=== PATIENT | male | born 1965 | race Caucasian/White ===

== ENCOUNTER 2018-12-07 13:40 | Outpatient (CLI) | payer BC ==
--- NOTE | 2018-12-07 16:10 | RAD ---
TWO VIEWS OF THE CHEST: 12/07/18 COMPARISON: 07/20/04 HISTORY: Cough. FINDINGS: Two views of the chest show normal sized cardiomediastinal silhouette. There is no evidence of consol idation, mass, or pleural effusion. The bones are unremarkable. IMPRESSION: No evidence of acute cardiopulmonary disease. POS: [facility]
== END 2018-12-07 13:41 | disposition home or self-care (01) ==
LOC: BICRAD 13:40
PROVIDERS: ATTEND Family Medicine
DX: R05 Cough (principal)
CPT/HCPCS: 71046

== ENCOUNTER 2019-12-10 14:14 | Outpatient (CLI) | payer BC ==
--- NOTE | 2019-12-10 17:38 | MRI ---
LEFT SHOULDER MRI WITHOUT IV CONTRAST: HISTORY: Tear of left rotator cuff, left shoulder pain with limited range of motion. FINDINGS: Multiplanar, multisequence MRI examination of the left shoulder is performed. There are AC joint art hrosis changes. Mild downsloping of the lateral acromion with some minimal fat stranding in the suba cromial subdeltoid bursa. Tiny undersurface focus of increased signal involving the supraspinatus an d infraspinatus tendon insertion regions, evidence for tiny undersurface or possibly interstitial tea rs without evidence for a complete full-thickness retracted tear. Undersurface and minimally delamin ating subscapularis tendon tear and mild tendinopathy. Abnormal linear signal associated with the conner perior labrum extending posteriorly, evidence for a SLAP tear with posterior extension. No evidence for abnormal edema or acute osteochondral defect. Rotator cuff muscles are within normal limits of s ignal and volume. IMPRESSION: Evidence for superior labrum anterior to posterior tear. Acromioclavicular joint arthrosis. Very sm all undersurface and minimal interstitial tearing of the supraspinatus, infraspinatus, and subscapula ris tendons without complete full-thickness or retracted tear. POS: [facility]
== END 2019-12-10 14:15 | disposition home or self-care (01) ==
LOC: TBSIIMAG 14:14
PROVIDERS: ATTEND Orthopaedic Surgery
DX: M75.102 Unspecified rotator cuff tear or rupture of left shoulder, not specified as traumatic (principal); M19.012 Primary osteoarthritis, left shoulder; S43.432A Superior glenoid labrum lesion of left shoulder, initial encounter

== ENCOUNTER 2020-03-03 19:00 | Outpatient (CLI) | payer BC | END 2020-03-03 19:01 | disposition home or self-care (01) | LOC: SLEEPLAB 19:00 | PROVIDERS: ATTEND Physician Assistant | DX: G47.33 Obstructive sleep apnea (adult) (pediatric) (principal); R53.83 Other fatigue; G47.00 Insomnia, unspecified | CPT/HCPCS: 95810 ==

== ENCOUNTER 2021-08-21 08:12 | Outpatient (CLI) | payer BC | END 2021-08-21 08:13 | disposition home or self-care (01) | LOC: BICULT 08:12 | PROVIDERS: ATTEND Family Medicine | DX: R79.89 Other specified abnormal findings of blood chemistry (principal); Z82.49 Family history of ischemic heart disease and other diseases of the circulatory system | CPT/HCPCS: 76775 ==

== ENCOUNTER 2022-06-07 08:33 | Outpatient (CLI) | payer OTHER | END 2022-06-07 08:34 | disposition home or self-care (01) | LOC: TBSIIMAG 08:33 | PROVIDERS: ATTEND Nurse Practitioner Family | DX: R42 Dizziness and giddiness (principal); I49.9 Cardiac arrhythmia, unspecified; T67.1XXS Heat syncope, sequela; R90.89 Other abnormal findings on diagnostic imaging of central nervous system; Z87.820 Personal history of traumatic brain injury | CPT/HCPCS: 70551 ==

== ENCOUNTER 2023-02-14 15:41 | Outpatient (CLI) | payer OTHER | END 2023-02-14 15:42 | disposition home or self-care (01) | LOC: BICMRI 15:41 | PROVIDERS: ATTEND Orthopaedic Surgery | DX: M75.102 Unspecified rotator cuff tear or rupture of left shoulder, not specified as traumatic (principal); S43.432A Superior glenoid labrum lesion of left shoulder, initial encounter; M75.122 Complete rotator cuff tear or rupture of left shoulder, not specified as traumatic; S46.912A Strain of unspecified muscle, fascia and tendon at shoulder and upper arm level, left arm, initial encounter ==

== ENCOUNTER 2023-03-15 15:14 | Outpatient (CLI) | payer OTHER ==
[2023-03-15 16:16] LABS: #Eosinphils 0.2 10x3/uL (0.0-0.5); #Monocytes 0.5 10x3/uL (0.0-1.1); #Neutrophils 3.9 10x3/uL (1.5-8.4); %Basophils 0.5 % (0.0-2.0); %Eosinophils 2.4 % (0.0-6.0); %Lymphocytes 28.1 % (18.0-47.0); %Monocytes 7.1 % (0.0-10.0); Hematocrit 40.4 % (38.8-50.0); Hemoglobin 14.8 g/dL (13.5-17.5); Mean Corpuscular HGB CONC 36.6 g/dL (32.0-36.0); Mean Corpuscular Hemoglobin 31.5 pg (27.0-33.0); Mean Platelet Volume 10.6 fl (7.4-10.4); Platelet Count 266 10x3/uL (150-450); RBC Distribution Width 13.2 % (11.5-14.5); White Blood Cell (WBC) Count 6.4 10x3/uL (3.5-10.5)
[2023-03-15 16:49] LABS: Anion Gap 14 mmol/L (10-20); BUN (Urea Nitrogen) 16 mg/dL (8.4-25.7); Calc. Creatinine Clearance 0 mL/min (70-130); Calcium 9.2 mg/dL (7.8-10.44); Carbon Dioxide 22 mmol/L (22-29); Chloride 106 mmol/L (98-107); Estimated GFR 75; Glucose 115 mg/dL (70-105); Sodium 138 mmol/L (136-145)
== END 2023-03-15 15:15 | disposition home or self-care (01) ==
LOC: LABBT 15:14
PROVIDERS: ATTEND Orthopaedic Surgery
DX: Z01.818 Encounter for other preprocedural examination (principal); M75.112 Incomplete rotator cuff tear or rupture of left shoulder, not specified as traumatic; M67.812 Other specified disorders of synovium, left shoulder
CPT/HCPCS: 80048; 85025; 93005; 93010

== ENCOUNTER 2023-03-17 07:29 | Day surgery (SDC) | payer OTHER ==
[2023-03-15 15:38] VITALS: BMI 27.9
[2023-03-17] MEDS ORDERED: fentaNYL 50 mcg/mL 1 mL Vial ONE (07:56)
[2023-03-17] MEDS ORDERED: Midazolam HCl 2 mg/2 ml Vial ONE (07:56)
[2023-03-17] MEDS ORDERED: Bupivacaine PF 0.5% 30 ML VIAL ONE (07:56)
[2023-03-17] MEDS ORDERED: CEFAZOLIN 2 GM VIAL ONE (08:02)
[2023-03-17] MEDS ORDERED: Sodium Chloride 0.9% 100 ML ONE (08:02)
[2023-03-17] MEDS ORDERED: HYDROmorphone 0.5 MG/0.5 ML SYRINGE ONE (08:13)
[2023-03-17] MEDS ORDERED: fentaNYL PF 100 MCG/2 ML SYRINGE ONE (08:13)
[2023-03-17] MEDS ORDERED: PHENYLEPHRINE-NS 100 MCG/ML 10 ML SYRINGE ONE (08:13)
[2023-03-17] MEDS ORDERED: Phenylephrine 10 MG/ML VIAL ONE (08:14)
[2023-03-17] MEDS ORDERED: Lidocaine 1% (PF) 30 ML VIAL ONE (08:29)
[2023-03-17] MEDS ORDERED: EPINEPHrine 1 MG/ML AMP ONE (08:29)
[2023-03-17] MEDS ORDERED: Dexamethasone 20 MG/5 ML VIAL ONE (08:52)
[2023-03-17] MEDS ORDERED: Ondansetron PF 4 MG/2 ML Vial ONE (08:52)
[2023-03-17] MEDS ORDERED: Rocuronium Bromide 10 MG/ML (10ML VIAL) ONE (08:52)
[2023-03-17] MEDS ORDERED: Lidocaine 1% PF 5 ML VIAL ONE (08:52)
[2023-03-17] MEDS ORDERED: PROPOFOL 200 MG/20 ML VIAL ONE (08:52)
[2023-03-17] MEDS ORDERED: fentaNYL 50 mcg/mL 1 mL Vial SLOW IVP PRN (08:55)
[2023-03-17] MEDS ORDERED: traMADol HCl 50 MG TAB PO PRN ×2 (09:00)
[2023-03-17] MEDS ORDERED: Ropivacaine 0.2% 550 ML 550 ML NERVE BLCK SCH (09:00)
[2023-03-17] MEDS ORDERED: HYDROcodone/Acetaminophen 10/325 mg Tablet PO PRN ×2 (09:00)
[2023-03-17] MEDS ORDERED: Zolpidem Tartrate 5 MG TAB PO PRN (09:00)
[2023-03-17] MEDS ORDERED: Ondansetron PF 4 MG/2 ML Vial IVP PRN (09:00)
[2023-03-17] MEDS ORDERED: Promethazine HCl 25 MG/ML VIAL IM PRN (09:00)
[2023-03-17] MEDS ORDERED: Ketorolac Tromethamine 30 MG/ML VIAL IVP SCH (12:00)
== END 2023-03-17 13:40 | disposition home or self-care (01) ==
LOC: SDC 07:29
PROVIDERS: ATTEND Orthopaedic Surgery
PROC: 0LS44ZZ Reposition Left Upper Arm Tendon, Percutaneous Endoscopic Approach (ICD-10-PCS; principal; 2023-03-17)
PROC: 0RNK4ZZ Release Left Shoulder Joint, Percutaneous Endoscopic Approach (ICD-10-PCS; principal; 2023-03-17)
DX: S43.432A Superior glenoid labrum lesion of left shoulder, initial encounter (principal); S46.202A Unspecified injury of muscle, fascia and tendon of other parts of biceps, left arm, initial encounter; S46.012A Strain of muscle(s) and tendon(s) of the rotator cuff of left shoulder, initial encounter; X58.XXXA Exposure to other specified factors, initial encounter; Z96.652 Presence of left artificial knee joint
CPT/HCPCS: A4306; C1713; J0171; J1100; J1170; J2001; J2250; J2370; J2405; J2704; J2795; J3010; J3490; S0020

== ENCOUNTER 2023-08-21 15:39 | Emergency (ER) | payer OTHER ==
[2023-08-21 17:32] LABS: #Eosinphils 0.1 thou/uL (0.0-0.7); #Monocytes 0.6 thou/uL (0.11-0.59); %Basophils 0.4 % (0.0-1.0); %Eosinophils 1.6 % (0.0-10.0); %Lymphocytes 19.6 % (21.0-51.0); %Monocytes 7.5 % (0.0-10.0); %Neutrophils 70.3 % (42.0-75.0); Hematocrit 40.9 % (42.0-52.0); Mean Corpuscular HGB CONC 36.7 g/dL (32.0-36.0); Mean Corpuscular Hemoglobin 31.4 pg (27.0-31.0); Mean Corpuscular Volume 85.7 fl (78.0-98.0); Mean Platelet Volume 10.8 fL (7.4-10.4); Platelet Count 230 10x3/uL (130-400); RBC Distribution Width 13.2 % (11.5-14.5); Red Blood Cell (RBC) Count 4.77 mill/uL (4.70-6.10); White Blood Cell (WBC) Count 8.5 10x3/uL (4.8-10.8)
[2023-08-21 17:52] LABS: ALT (SGPT) 20 U/L (8-55); AST (SGOT) 20 U/L (5-34); Alkaline Phosphatase 56 U/L (40-110); Anion Gap 11 mmol/L (10-20); BUN (Urea Nitrogen) 17 mg/dL (8.4-25.7); Bilirubin, Total 0.8 mg/dL (0.2-1.2); Calc. Creatinine Clearance 0 mL/min (70-130); Calcium 9.4 mg/dL (7.8-10.44); Carbon Dioxide 26 mmol/L (22-29); Chloride 104 mmol/L (98-107); Estimated GFR 72; Globulin 3.3 g/dL (2.4-3.5); Glucose 97 mg/dL (70-105); Potassium 4.6 mmol/L (3.5-5.1); Protein, Total 7.3 g/dL (6.0-8.3); Sodium 136 mmol/L (136-145)
[2023-08-21 17:54] LABS: Troponin I Less than 0.010 ng/mL (< 0.028)
[2023-08-21 19:14] LABS: Troponin I Less than 0.010 ng/mL (< 0.028)
== END 2023-08-21 19:51 | disposition home or self-care (01) ==
LOC: ERS 15:39
DX: R10.13 Epigastric pain (principal); G98.8 Other disorders of nervous system; I62.9 Nontraumatic intracranial hemorrhage, unspecified; Z55.6 Problems related to health literacy
CPT/HCPCS: 36415; 71045; 80053; 84484; 85025; 93005

== ENCOUNTER 2024-03-28 09:36 | Outpatient (CLI) | payer OTHER | END 2024-03-28 09:37 | disposition home or self-care (01) | LOC: SCSMRI 09:36 | PROVIDERS: ATTEND Psychiatry & Neurology Neurology | DX: R55 Syncope and collapse (principal); I67.82 Cerebral ischemia | CPT/HCPCS: 70553; 76376 ==

== ENCOUNTER 2025-04-18 07:44 | Outpatient (CLI) | payer OTHER | END 2025-04-18 07:45 | disposition home or self-care (01) | LOC: CT 07:44 | PROVIDERS: ATTEND Surgery | DX: K43.2 Incisional hernia without obstruction or gangrene (principal); K42.9 Umbilical hernia without obstruction or gangrene; K40.90 Unilateral inguinal hernia, without obstruction or gangrene, not specified as recurrent | CPT/HCPCS: 74177 ==

== ENCOUNTER 2025-04-30 05:53 | Day surgery (SDC) | payer OTHER ==
[2025-04-24 16:16] VITALS: BMI 25.8
[2025-04-30] MEDS ORDERED: CEFAZOLIN 2 GM VIAL ONE (06:24)
[2025-04-30] MEDS ORDERED: Bupivacaine 0.25% HCL 30 ML VIAL ONE (06:39)
[2025-04-30] MEDS ORDERED: Lidocaine 1% PF 5 ML VIAL ONE (07:00)
[2025-04-30] MEDS ORDERED: PROPOFOL 40 ML ONE (07:00)
[2025-04-30] MEDS ORDERED: fentaNYL PF 100 MCG/2 ML SYRINGE ONE ×2 (07:00→09:10)
[2025-04-30] MEDS ORDERED: Rocuronium Bromide 10 MG/ML (10ML VIAL) ONE (07:00)
[2025-04-30] MEDS ORDERED: Glycopyrrolate 0.2 MG/ML 5 ML SYRINGE ONE (08:29)
[2025-04-30] MEDS ORDERED: Ondansetron PF 4 MG/2 ML Vial ONE (09:00)
[2025-04-30] MEDS ORDERED: Ketorolac Tromethamine 30 MG (1 mL) VIAL ONE (09:00)
[2025-04-30] MEDS ORDERED: SUGAMMADEX SODIUM 200 MG/2 ML VIAL ONE (09:03)
[2025-04-30] MEDS ORDERED: PHENYLEPHRINE-NS 100 MCG/ML 10 ML SYRINGE ONE (10:12)
[2025-04-30] MEDS ORDERED: HYDROcodone/Acetaminophen 5/325 mg Tablet ONE (11:01)
== END 2025-04-30 11:10 | disposition home or self-care (01) ==
LOC: SDC 05:53
PROVIDERS: ATTEND Surgery
PROC: 0WQF4ZZ Repair Abdominal Wall, Percutaneous Endoscopic Approach (ICD-10-PCS; principal; 2025-04-30)
PROC: 0YQA4ZZ Repair Bilateral Inguinal Region, Percutaneous Endoscopic Approach (ICD-10-PCS; principal; 2025-04-30)
DX: K40.90 Unilateral inguinal hernia, without obstruction or gangrene, not specified as recurrent (principal); K43.9 Ventral hernia without obstruction or gangrene; Z87.891 Personal history of nicotine dependence
CPT/HCPCS: A4314; C1781; J0169; J0665; J1100; J1885; J2405; J2704; S2900